=== PATIENT | female | born 1980 | race Caucasian/White ===

== ENCOUNTER 2018-11-02 11:53 | Emergency (ER) | payer SELFPAY ==
[~2018-11-02] VITALS: Ht 177.8 cm; Wt 88.5 kg
--- OUTSIDE RECORDS SUMMARY | 2018-11-02 11:55 | XMS REPORT ---
[facility] Phone Unavailable Care Team Providers Care Hvac Service Tech Name Role Phone Unavailable Unavailable Payers Payer Name Policy Type Policy Number Effective Date Expiration Date Problems This patient has no known problems. Allergies, Adverse Reactions, Alerts Allergy Name Allergy Type Status Severity Reaction(s) Onset Date Inactive Date Treating Clinician Comments No Known Allergies DA Active U 2018-06-25 00:00:00 No Known Allergies DA Active U 2017-08-29 00:00:00 Medications This patient has no known medications. Encounters Start Date/Time End Date/Time Encounter Type Admission Type Attending Clinicians Care Facility Care Department Encounter ID 2018-12-15 00:00:00 2018-12-15 00:00:00 Outpatient [facility] [id number] 2018-09-19 00:00:00 2018-09-19 00:00:00 Outpatient [facility] [id number] 2018-09-01 10:08:58 2018-09-01 10:08:58 Outpatient [facility] [id number] 2018-09-01 09:39:17 2018-09-01 09:39:17 Outpatient [facility] [id number] 2018-09-01 08:48:33 2018-09-01 08:48:33 Outpatient [facility] [id number] 2018-09-01 00:00:00 2018-09-01 00:00:00 Outpatient [facility] [id number] 2018-07-09 00:00:00 2018-07-09 00:00:00 Outpatient [facility] [id number] 2018-07-09 00:00:00 2018-07-09 00:00:00 Outpatient [facility] [id number] 2018-07-04 00:00:00 2018-07-04 00:00:00 Outpatient [facility] [id number] 2018-06-23 13:20:53 2018-06-23 13:20:53 Outpatient [facility] [id number] 2018-06-19 00:00:00 2018-06-19 00:00:00 Outpatient [facility] [id number] 2018-05-27 00:00:00 2018-05-27 00:00:00 Outpatient [facility] [id number] 2018-04-01 00:00:00 2018-04-01 00:00:00 Outpatient [facility] [id number] 2018-03-25 00:00:00 2018-03-25 00:00:00 Outpatient [facility] [id number] 2018-03-24 00:00:00 2018-03-24 00:00:00 Outpatient [facility] [id number] 2018-03-19 09:07:45 2018-03-19 09:07:45 Outpatient [facility] [id number] 2018-03-19 00:00:00 2018-03-19 00:00:00 Outpatient [facility] [id number] 2018-02-12 00:00:00 2018-02-12 00:00:00 Outpatient [facility] [id number] 2018-01-21 00:00:00 2018-01-21 00:00:00 Outpatient [facility] [id number] 2017-12-31 11:27:50 2017-12-31 11:27:50 Outpatient [facility] [id number] 2017-11-26 00:00:00 2017-11-26 00:00:00 Outpatient [facility] [id number] 2017-11-25 11:57:49 2017-11-25 11:57:49 Outpatient [facility] [id number] 2017-11-25 11:49:50 2017-11-25 11:49:50 Outpatient [facility] [id number] 2017-11-25 00:00:00 2017-11-25 00:00:00 Outpatient [facility] [id number] 2017-11-22 00:00:00 2017-11-22 00:00:00 Outpatient [facility] [id number] 2017-11-22 00:00:00 2017-11-22 00:00:00 Outpatient [facility] [id number] 2017-11-22 00:00:00 2017-11-22 00:00:00 Outpatient [facility] [id number] 2017-11-20 15:14:58 2017-11-20 15:14:58 Outpatient [facility] [id number] 2017-11-18 00:00:00 2017-11-18 00:00:00 Outpatient [facility] [id number] 2017-11-01 00:00:00 2017-11-01 00:00:00 Outpatient [facility] [id number] 2017-10-24 00:00:00 2017-10-24 00:00:00 Outpatient [facility] [id number] 2017-10-11 13:38:21 2017-10-11 13:38:21 Outpatient [facility] [id number] 2017-10-10 00:00:00 2017-10-10 00:00:00 Outpatient [facility] [id number] 2017-08-19 00:00:00 2017-08-19 00:00:00 Outpatient [facility] [id number] 2017-06-03 00:00:00 2017-06-03 00:00:00 Outpatient [facility] [id number] 2017-05-08 00:00:00 2017-05-08 00:00:00 Outpatient [facility] [id number] 2017-05-07 00:00:00 2017-05-07 00:00:00 Outpatient [facility] [id number] 2017-04-12 00:00:00 2017-04-12 00:00:00 Outpatient [facility] [id number] 2017-04-01 00:00:00 2017-04-01 00:00:00 Outpatient [facility] [id number] 2017-03-27 00:00:00 2017-03-27 00:00:00 Outpatient [facility] [id number] 2017-03-22 00:00:00 2017-03-22 00:00:00 Outpatient [facility] [id number] 2017-03-20 09:54:39 2017-03-20 09:54:39 Outpatient [facility] [id number] 2017-03-20 08:57:26 2017-03-20 08:57:26 Outpatient [facility] [id number] 2017-03-20 08:07:08 2017-03-20 08:07:08 Outpatient [facility] [id number] 2017-03-13 00:00:00 2017-03-13 00:00:00 [facility]patient [facility] [id number] 2017-03-13 00:00:00 2017-03-13 00:00:00 Outpatient [facility] [id number] 2017-02-21 00:00:00 2017-02-21 00:00:00 Outpatient [facility] [id number] 2017-02-18 00:00:00 2017-02-18 00:00:00 Outpatient [facility] [id number] 2017-02-13 00:00:00 2017-02-13 00:00:00 Outpatient [facility] [id number] 2017-02-07 00:00:00 2017-02-07 00:00:00 Outpatient [facility] [id number] 2017-01-30 14:22:09 2017-01-30 14:22:09 Outpatient [facility] [id number] 2017-01-30 14:09:27 2017-01-30 14:09:27 Outpatient [facility] [id number] 2017-01-30 13:05:47 2017-01-30 13:05:47 Outpatient [facility] [id number] Results Test Description Test Time Test Comments Text Results Atomic Results Result Comments BASIC METABOLIC PANEL 2018-06-18 19:46:00 SODIUM (test code=NA) 143 mmol/L 136-145 POTASSIUM (test code=K) 4.1 mmol/L 3.5-5.1 CHLORIDE (test code=CL) 112.0 mmol/L 98-107 CARBON DIOXIDE (test code=CO2) 23.0 mmol/L 21-32 ANION GAP (test code=GAP) 12.1 10-20 GLUCOSE (test code=GLU) 85 mg/dL 74-106 BLOOD UREA NITROGEN (test code=BUN) 9 mg/dL 7-18 GLOMERULAR FILTRATION RATE (test code=GFR) > 60 mL/min >=60 Estimated GFR by using Modified MDRD formula.Chronic kidney disease is defined as either kidney damageor GFR <60 mL/min/1.73 m2 for >3 months. CREATININE (test code=CREAT) 0.70 mg/dL 0.55-1.02 Note change in reference range due to change in reagent. BUN/CREATININE RATIO (test code=BUN/CREA) 12.9 10-20 CALCIUM (test code=CA) 8.0 mg/dL 8.5-10.1 HEPATIC FUNCTION [id number] 19:46:00* Test Item Value Reference Range Comments TOTAL PROTEIN (test code=PROT) 6.8 gram/dL 6.4-8.2 ALBUMIN (test code=ALB) 3.5 g/dL 3.4-5.0 GLOBULIN (test code=GLOB) 3.3 gram/dL 2.7-4.2 ALBUMIN/GLOBULIN RATIO (test code=A/G) 1.1 0.75-1.50 BILIRUBIN TOTAL (test code=BILT) 0.10 mg/dL 0.0-1.0 BILIRUBIN DIRECT (test code=BILD) < 0.05 mg/dL 0.0-0.20 SGOT/AST (test code=AST) 21 IUnit/L 15-37 SGPT/ALT (test code=ALT) 21 IUnit/L 12-78 ALKALINE PHOSPHATASE TOTAL (test code=ALKP) 69 IUnit/L 45-117 Note change in reference range due to change in reagent. HCG SERUM [id number] 19:46:00* Test Item Value Reference Range Comments HCG SERUM QUAL (test code=HCGQL) NEGATIVE NEGATIVE This HCGQL test is NOT applicable for MALE patients.Check with nurse about probable order error.If Tumor Marker Test needed, nurse should order test "HCGTU"(Test #[id number]) [id number] 19:46:00* Test Item Value Reference Range Comments ALCOHOL (test code=ALC) 182 mg/dL 0.0-3.0 INTERPRETIVE DATA NOTE: POSITIVE SCREENING RESULTS SHOULD BE CONSIDERED PRESUMPTIVE.WHEN COLLECTED FOR MEDICAL PURPOSES ONLY. SPECIMEN WILL NOTBE COLLECTED BY CHAIN OF CUSTODY.IF A CONFIRMATION OF POSITIVE RESULTS IS DESIRED, ACONFIRMATION TEST MUST BE REQUESTED BY THE PHYSICIAN AT ANADDITIONAL CHARGE TO THE PATIENT. BASIC METABOLIC [id number] 19:26:00* Test Item Value Reference Range Comments SODIUM (test code=NA) mmol/L 136-145 POTASSIUM (test code=K) mmol/L 3.5-5.1 CHLORIDE (test code=CL) mmol/L 98-107 CARBON DIOXIDE (test code=CO2) mmol/L 21-32 ANION GAP (test code=GAP) 10-20 GLUCOSE (test code=GLU) mg/dL 74-106 BLOOD UREA NITROGEN (test code=BUN) mg/dL 7-18 GLOMERULAR FILTRATION RATE (test code=GFR) mL/min >=60 CREATININE (test code=CREAT) mg/dL 0.55-1.02 BUN/CREATININE RATIO (test code=BUN/CREA) 10-20 CALCIUM (test code=CA) mg/dL 8.5-10.1 HEPATIC FUNCTION [id number] 19:26:00* Test Item Value Reference Range Comments TOTAL PROTEIN (test code=PROT) gram/dL 6.4-8.2 ALBUMIN (test code=ALB) g/dL 3.4-5.0 GLOBULIN (test code=GLOB) gram/dL 2.7-4.2 ALBUMIN/GLOBULIN RATIO (test code=A/G) 0.75-1.50 BILIRUBIN TOTAL (test code=BILT) mg/dL 0.0-1.0 BILIRUBIN DIRECT (test code=BILD) mg/dL 0.0-0.20 SGOT/AST (test code=AST) IUnit/L 15-37 SGPT/ALT (test code=ALT) IUnit/L 12-78 ALKALINE PHOSPHATASE TOTAL (test code=ALKP) IUnit/L 45-117 HCG SERUM [id number] 19:26:00* Test Item Value Reference Range Comments HCG SERUM QUAL (test code=HCGQL) NEGATIVE NEGATIVE This HCGQL test is NOT applicable for MALE patients.Check with nurse about probable order error.If Tumor Marker Test needed, nurse should order test "HCGTU"(Test #[id number]) [id number] 19:26:00* Test Item Value Reference Range Comments ALCOHOL (test code=ALC) mg/dL 0-3 CBC W/O [id number] 18:57:00* Test Item Value Reference Range Comments WHITE BLOOD CELL (test code=WBC) 6.9 K/mm3 4.5-12.5 RED BLOOD CELL (test code=RBC) 4.41 mill/mm3 3.7-5.2 HEMOGLOBIN (test code=HGB) 12.6 gram/dL 11.5-15.5 HEMATOCRIT (test code=HCT) 41.2 % 36.0-46.0 MEAN CELL VOLUME (test code=MCV) 93.4 fL 80-98 MEAN CELL HGB (test code=MCH) 28.6 picogram 27.0-33.0 MEAN CELL HGB CONCETRATION (test code=MCHC) 30.6 gram/dL 33.0-36.0 RED CELL DISTRIBUTION WIDTH (test code=RDW) 14.4 % 11.6-16.2 PLATELET COUNT (test code=PLT) 343 K/mm3 150-450 MEAN PLATELET VOLUME (test code=MPV) 10.0 fL 6.7-11.0 URINALYSIS [id number] 18:31:00* Test Item Value Reference Range Comments UA COLOR (test code=COLU) LIGHT YELLOW YELLOW UA APPEARANCE (test code=APPU) SLIGHTLY CLOUDY CLEAR UA GLUCOSE DIPSTICK (test code=DGLUU) NEGATIVE mg/dL NEGATIVE UA BILIRUBIN DIPSTICK (test code=BILU) NEGATIVE mg/dL NEGATIVE UA KETONE DIPSTICK (test code=KETU) NEGATIVE mg/dL NEGATIVE UA SPECIFIC GRAVITY (test code=SGU) 1.013 1.001-1.035 UA BLOOD DIPSTICK (test code=BERNADETTE) Negative mg/dL NEGATIVE UA PH DIPSTICK (test code=JESSICA) 5.0 5.0-8.0 UA PROTEIN DIPSTICK (test code=PROU) NEGATIVE mg/dL NEGATIVE UA UROBILINIOGEN DIPSTICK (test code=URO) NEGATIVE mg/dL NEGATIVE UA NITRITE DIPSTICK (test code=KIMO) NEGATIVE NEGATIVE UA LEUKOCYTE ESTERASE W REFLEX (test code=LEUUR) NEGATIVE Jackie/uL NEGATIVE UA WBC (test code=WBCU) 0-5 per HPF 0-5 UA RBC (test code=RBCU) 0-2 #/HPF 0-5 UA EPITHELIAL CELLS (test code=EPIU) MOD per HPF FEW UA BACTERIA (test code=BACU) FEW #/HPF NONE UA MUCUS (test code=MUCU) FEW #/LPF FEW Urine Source? Clean CatchDRUGS OF ABUSE SCREEN [id number] 18:31:00* Test Item Value Reference Range Comments URN COCAINE (test code=COCAURN) NEGATIVE <300 ng/mL URN CANNABINOIDS (test code=CANNABURN) POSITIVE <50 ng/mL This test provides only a preliminary test result. A morespecific alternate chemical method must be used in order toobtain a confirmed analytical result. Gas chromatography/mass spectrometry (GC/MS) is thepreferred confirmatory method. Other chemical confirmationmethods are available. Clinical consideration and professional judgment should be applied to any drug of abusetest result, particularly when preliminary positive resultsare used.Unconfirmed screening results must not be used fornon-medical purposes (e.g., employment testing, legaltesting). URN AMPHETAMINE (test code=AMPHETURN) NEGATIVE <1000 ng/mL URN BARBITURATE (test code=BARBITURN) NEGATIVE <200 ng/mL URN BENZODIAZEPINE (test code=BENZOURN) NEGATIVE <200 ng/mL URN OPIATES (test code=OPIATURN) POSITIVE <300 ng/mL This test provides only a preliminary test result. A morespecific alternate chemical method must be used in order toobtain a confirmed analytical result. Gas chromatography/mass spectrometry (GC/MS) is thepreferred confirmatory method. Other chemical confirmationmethods are available. Clinical consideration and professional judgment should be applied to any drug of abusetest result, particularly when preliminary positive resultsare used.Unconfirmed screening results must not be used fornon-medical purposes (e.g., employment testing, legaltesting). URN PHENCYCLIDINE (PCP) (test code=PHENCURN) NEGATIVE <25 ng/mL URN METHADONE (test code=METHAURN) NEGATIVE <300 ng/mL Urine Source? Clean CatchURINALYSIS [id number] 17:50:00* Test Item Value Reference Range Comments UA COLOR (test code=COLU) LIGHT YELLOW YELLOW UA APPEARANCE (test code=APPU) SLIGHTLY CLOUDY CLEAR UA GLUCOSE DIPSTICK (test code=DGLUU) NEGATIVE mg/dL NEGATIVE UA BILIRUBIN DIPSTICK (test code=BILU) NEGATIVE mg/dL NEGATIVE UA KETONE DIPSTICK (test code=KETU) NEGATIVE mg/dL NEGATIVE UA SPECIFIC GRAVITY (test code=SGU) 1.013 1.001-1.035 UA BLOOD DIPSTICK (test code=BERNADETTE) Negative mg/dL NEGATIVE UA PH DIPSTICK (test code=JESSICA) 5.0 5.0-8.0 UA PROTEIN DIPSTICK (test code=PROU) NEGATIVE mg/dL NEGATIVE UA UROBILINIOGEN DIPSTICK (test code=URO) NEGATIVE mg/dL NEGATIVE UA NITRITE DIPSTICK (test code=KIMO) NEGATIVE NEGATIVE UA LEUKOCYTE ESTERASE W REFLEX (test code=LEUUR) NEGATIVE Jackie/uL NEGATIVE UA WBC (test code=WBCU) 0-5 per HPF 0-5 UA RBC (test code=RBCU) 0-2 #/HPF 0-5 UA EPITHELIAL CELLS (test code=EPIU) MOD per HPF FEW UA BACTERIA (test code=BACU) FEW #/HPF NONE UA MUCUS (test code=MUCU) FEW #/LPF FEW Urine Source? Clean CatchDRUGS OF ABUSE SCREEN [id number] 17:50:00* Test Item Value Reference Range Comments URN COCAINE (test code=COCAURN) <300 ng/mL URN CANNABINOIDS (test code=CANNABURN) <50 ng/mL URN AMPHETAMINE (test code=AMPHETURN) <1000 ng/mL URN BARBITURATE (test code=BARBITURN) <200 ng/mL URN BENZODIAZEPINE (test code=BENZOURN) <200 ng/mL URN OPIATES (test code=OPIATURN) <300 ng/mL URN PHENCYCLIDINE (PCP) (test code=PHENCURN) <25 ng/mL URN METHADONE (test code=METHAURN) <300 ng/mL Urine Source? Clean Catch
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
[2018-11-02 12:13] LABS: BASOPHILS % 0.3 % (0.0-1.0); EOSINOPHILS # (AUTO) 0.2 (0.0-0.4); EOSINOPHILS % 1.6 % (0.0-6.0); HEMATOCRIT 38.3 % (34.2-44.1); HEMOGLOBIN 12.6 g/dL (12.0-16.0); LYMPHOCYTES # (AUTO) 1.5 (1.0-3.2); LYMPHOCYTES % 13.6 % (18.0-39.1); MEAN CORPUSCULAR HEMOGLOBIN 30.3 pg (28-32); MEAN CORPUSCULAR HGB CONC 32.9 g/dL (31-35); MEAN CORPUSCULAR VOLUME 92.1 fL (81-99); MONOCYTES # (AUTO) 0.8 (0.2-0.8); MONOCYTES % 7.2 % (4.4-11.3); NEUTROPHILS # (AUTO) 8.8 (2.1-6.9); PLATELET COUNT 340 x10e3/uL (140-360); RED BLOOD COUNT 4.16 x10e6/uL (3.6-5.1)
[2018-11-02 12:18] LABS: BILIRUBIN,URINE SMALL (NEGATIVE); CLARITY,URINE CLEAR (CLEAR); COLOR,URINE YELLOW (YELLOW); KETONES,URINE NEGATIVE (NEGATIVE); LEUKOCYTE ESTERASE ,URINE NEGATIVE (NEGATIVE); NITRITE,URINE NEGATIVE (NEGATIVE); PROTEIN,URINE DIPSTICK NEGATIVE (NEGATIVE); URINE UROBILINOGEN 0.2 mg/dL (0.2 - 1)
[2018-11-02] MEDS: DEXAMETHASONE SOD PHOS 10 MG/1 ML VIAL IM NR (12:23)
[2018-11-02 12:24] LABS: PREGNANCY TEST, URINE NEGATIVE (NEGATIVE)
[2018-11-02 12:31] LABS: ALANINE AMINOTRANSFERASE 11 IU/L (0-55); ALBUMIN 3.9 g/dL (3.5-5.0); ALBUMIN/GLOBULIN RATIO 1.3 (0.8-2.0); ALKALINE PHOSPHATASE 80 IU/L (40-150); ANION GAP 13.5 mmol/L (8-16); BLOOD UREA NITROGEN 10 mg/dL (7-26); BUN/CREATININE RATIO 12 (6-25); CALCIUM 9.5 mg/dL (8.4-10.2); CARBON DIOXIDE 22 mmol/L (22-29); CHLORIDE 108 mmol/L (98-107); CREATININE, SERUM 0.81 mg/dL (0.57-1.11); EST GLOMERULAR FILTRATION RATE > 60 ML/MIN (60-); GLUCOSE 121 mg/dL (74-118); POTASSIUM 3.5 mmol/L (3.5-5.1); SODIUM 140 mmol/L (136-145)
[2018-11-02 12:48] LABS: BACTERIA,URINE FEW /HPF; EPITHELIAL CELLS,URINE RARE /LPF; MUCUS,URINE MODERATE (RARE); RBC,URINE 0-5 /HPF (0-5); WBC,URINE (MAN) 0-5 /HPF (0-5)
--- NOTE | 2018-11-02 12:48 | Diagnostic Imaging Report ---
EXAMINATION: PA and lateral views of the chest. COMPARISON: None CLINICAL HISTORY: Shortness of breath DISCUSSION: Lines/tubes: None. Lungs: Lungs are well-inflated. 5 mm nodular density projecting between the posterior aspects of the left ninth and 10th ribs on the frontal view. No consolidation or pulmonary edema. Pleura: There is no pleural effusion or pneumothorax. Heart and mediastinum: Cardiomediastinal silhouette is unremarkable. Pulmonary vasculature is normal. Bones and soft tissues: No acute bony abnormalities. IMPRESSION: No acute cardiopulmonary abnormalities. 5 mm nodular density projecting in the left lower lung may represent a nodule or calcified granuloma. Prior films, if available, would be helpful for comparison. If no prior films can be obtained, recommend chest PA and lateral in 2-3 months to document stability. Signed by: Dr. Jimbo Bolden M.D. on 11/02/2018 12:45 PM
[2018-11-02] MEDS: IPRATROPIUM BROMIDE 0.02% 2.5 ML NEB NEB STA (13:00)
[2018-11-02] MEDS: ALBUTEROL SULF 0.083% NEB SOLN 3 ML NEB NEB STA (13:00)
== END 2018-11-02 13:30 | disposition home or self-care (01) ==
LOC: ER 11:53
DX: J20.9 Acute bronchitis, unspecified (principal); R91.8 Other nonspecific abnormal finding of lung field; Z87.891 Personal history of nicotine dependence
CPT/HCPCS: 36415; 71046; 80053; 81001; 81025; 85025; 87086; 94640; 99284; J1100

== ENCOUNTER 2019-05-03 15:52 | Emergency (ER) | payer SELFPAY ==
[~2019-05-03] VITALS: Ht 177.8 cm; Wt 88.5 kg
[2019-05-03] MEDS ORDERED: KETOROLAC TROMETHAMINE 60 MG/2 ML VIAL ONE (16:09)
[2019-05-03] MEDS ORDERED: KETOROLAC TROMETHAMINE 60 MG/2 ML VIAL IM ONE (16:15)
== END 2019-05-03 16:21 | disposition home or self-care (01) ==
LOC: ER 15:52
DX: M79.672 Pain in left foot (principal); M79.671 Pain in right foot; M72.2 Plantar fascial fibromatosis
CPT/HCPCS: 99281; J1885